=== PATIENT | female | born 1990 | race Caucasian/White ===

== ENCOUNTER 2019-04-30 21:28 | Emergency (ER) | payer SELFPAY ==
[2019-04-30] MEDS ORDERED: Amoxicillin/Clavulanate TAB* 875 MG PO ONE (22:08)
--- NOTE | 2019-04-30 22:09 | ED ---
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 Nose to nose and right cheek. Denies any other symptoms, pain or injury. Patient is vaccinated against rabies. Dog was also vaccinated against rabies. Dog is a patient at [employer]. - History of Current Complaint Chief Complaint: EDAnimalBite Stated Complaint: FACE INJURY PER PT Time Seen by Provider: 04/30/19 22:07 Hx Obtained From: Patient Onset of Injury: Happened minutes ago Type of Bite: Animal Hx of Bite: Unprovoked Has Animal Been Immunized?: Yes Severity Initially: Moderate Severity Currently: Moderate Pain Intensity: 4 Pain Scale Used: 0-10 Numeric Character: Abrasion/Laceration Associated Signs And Symptoms: Positive: Negative PMH/Surg Hx/FS Hx/Imm Hx Endocrine/Hematology History: Denies: Hx Anticoagulant Therapy Cardiovascular History: Denies: Hx Pacemaker/ICD History: Denies: Hx Dialysis Sensory History: Denies: Hx Eye Prosthesis Opthamlomology History: Denies: Hx Legally Blind EENT History: Denies: Hx Deafness Neurological History: Denies: Hx Dementia - Immunization History Date of Tetanus Vaccine: unknown Infectious Disease History: No Infectious Disease History: Denies: Traveled Outside the [place] in Last 30 Days - Family History Known Family History: Positive: Non-Contributory - Social History Alcohol Use: Occasionally Substance Use Type: Reports: None Smoking Status (MU): Never Smoked Tobacco Review of Systems Constitutional: Negative Eyes: Negative ENT: Negative Cardiovascular: Negative Respiratory: Negative Gastrointestinal: Negative Genitourinary: Negative Musculoskeletal: Negative Skin: Other Neurological: Negative Psychological: Normal All Other Systems Reviewed And Are Negative: Yes Physical Exam - Summary Physical Exam Summary: Laceration to the lateral right cheek, linear, no indication for suturing. Skin tear to anterior right cheek 0.5 cm x 0.5 cm, no indication for suturing. 2 lacerations right cheek, superficial, linear, no indication for suturing. Laceration of nose. No evidence of puncture to any of the wounds. Vital Signs On Initial Exam: Initial Vitals Temp Pulse Resp BP Pulse Ox 98.3 F 102 20 148/99 98 04/30/19 21:32 04/30/19 21:32 04/30/19 21:32 04/30/19 21:32 02/01/20 21:32 Procedures - Sedation Patient Received Moderate/Deep Sedation with Procedure: No - Laceration/Wound Repair 1 Location: face - bridge of nose Description: Linear Anesthesia: Local, 1.0% Length, Depth and Shape: 2cm x .5cm Betadine Prep?: No Irrigated w/ Saline (ccs): 400 Laceration/Wound Explored: clean Debridement: minimal Number of Sutures: 2 - 6. 0 Ethilon Layer Closure?: No Sterile Dressing Applied?: No Diagnostics - Vital Signs Vital Signs Temp Pulse Resp BP Pulse Ox 04/30/19 21:32 98.3 F 102 20 148/99 98 - Laboratory Lab Statement: Any lab studies that have been ordered have been reviewed, and results considered in the medical decision making process. 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 Nose to nose and right cheek. Denies any other symptoms, pain or injury. Patient is vaccinated against rabies. Dog was also vaccinated against rabies. Dog is a patient at [employer]. Denies extensively irrigated. Laceration on bridge of nose loosely approximated with 2 sutures, leaving significant spacing between sutures for potential drainage. Rx for Augmentin - Diagnoses Provider Diagnosis: Dog bite, Laceration Discharge ED - Sign-Out/Discharge Documenting (check all that apply): Patient Departure - Discharge Plan Condition: Stable Disposition: HOME Prescriptions: Amoxicillin/Clavulanate TAB* [Augmentin TAB 875*] 875 mg PO BID #20 tab Patient Education Materials: Animal Bite (ED) Referrals: No Primary Care Phys,NOPCP [Primary Care Provider] - Additional Instructions: Sutures out in 5 days. Leave Steri-Strips on until they fall off. You may gently wash wounds with warm running water and soap starting tomorrow. Do not submerge face underwater for 5 days. Take Augmentin twice a day as directed for 10 days. Alternate ibuprofen and Tylenol every 3 hours for pain and inflammation. Return to the ED for any new or worsening symptoms. - Billing Disposition and Condition Condition: STABLE Disposition: Home
[2019-04-30] MEDS ORDERED: Tetan/Diph/Pertus SYR(Tdap)* 0.5 ML SYR(BOOSTRIX) use SYR contains LATEX IM ONE (22:18)
[2019-04-30] MEDS ORDERED: Bacitracin OINTMENT* 0.5% 0.5 oz TUBE TOPICAL ONE (23:23)
[2019-04-30 23:35] VITALS: BP 143/78
== END 2019-04-30 23:34 | disposition home or self-care (01) ==
LOC: ED 21:28
DX: S01.25XA Open bite of nose, initial encounter (principal); S01.451A Open bite of right cheek and temporomandibular area, initial encounter; W54.0XXA Bitten by dog, initial encounter; Y92.89 Other specified places as the place of occurrence of the external cause
CPT/HCPCS: 12011; 90471; 90715; 99282; A9270-GY